=== PATIENT | female | born 1970 | race Caucasian/White ===

== ENCOUNTER 2023-02-16 07:09 | Observation (INO) ==
[2023-02-16 07:25] VITALS: BMI 23.8
[2023-02-16] MEDS ORDERED: ZOFRAN INJ 4 MG VIAL ONE (07:27)
[2023-02-16] MEDS ORDERED: NS 1,000 ML IV 1,000 ML ONE ×2 (07:27→08:51)
--- NOTE | 2023-02-16 07:41 | DR.GENAD ---
HPI <MARTHA CORTEZ - Last Filed: 02/17/23 07:43> Time Seen Time Seen by Provider: 02/16/23 07:40 PCP Primary Care Physician: Dr Ruiz HPI Comment HPI Comment: Patient is a 52-year-old female in the emergency room with nausea, chills, diaphoresis and leg cramps since last night. Patient said her symptoms started at 23:30 PM and have persisted since. She tried to take some Zofran for nausea but the medication did not stay down. Patient said she is weak and she is having chest pain that started this morning that is non radiating in the epigastric and lower mid chest area. Patient have had cholecystectomy in the past but no other surgeries. She denies fever or dysuria or diarrhea. Complaint/Symptoms Chief Complaint Doctors Comments: Epigastric pain, chills, nausea, leg cramps and diaphoresis since last night. Chest pain this morning. Chief Complaint:: Patient states last night around 2330 she became very nauseated, leg cramps, chills and sweating. COVID-19 Coronavirus risk:travel/contact w/high risk person: No Has patient experienced Coronavirus symptoms: No Nurses notes reviewed Nurses Notes Review: Yes Source History Provided: Patient Mode of Arrival Mode of Arrival: Ambulatory Timing Onset of Chief Complaint: 02/15/23 PMH <MARTHA CORTEZ - Last Filed: 02/17/23 07:43> PMH Past Medical History: Yes Past Medical History: GERD Past Surgical History: No Family History History of Family Medical Conditions: No Social History Does patient currently use any type of tobacco product: No Have you used tobacco products in the last 12 months: No Type of Tobacco Use: None Does any household member use tobacco: No Alcohol Use: None Do you use any recreational Drugs:: No Lives With: Spouse Lives Where: Home Travel Risk Coronavirus risk:travel/contact w/high risk person: No Has patient experienced Coronavirus symptoms: No Infectious screening In the last 2 months have you had wt loss of >10#?: NO Have you had fever, night sweats or hemotysis?: No Have you traveled outside the country in the last 6 months?: No Isolation: Standard ROS <MARTHA CORTEZ - Last Filed: 02/17/23 07:43> Review of Systems Constitutional: Chills, Diaphoresis and Weakness; negative Fever Eyes: No Symptoms Reported ENTM: No Symptoms Reported; negative Nose Discharge or Nose Congestion Respiratoy: No Symptoms Reported; negative Moist Cough, Short of Breath or Wheezing Cardiovascular: Chest Pain Gastrointestinal/Abdominal: Abdominal Pain and Nausea; negative Diarrhea or Vomiting Genitourinary: No Symptoms Reported; negative Dysuria Neurological: Weakness; negative Headache or Dizziness Musculoskeletal: No Symptoms Reported; negative Muscle Pain Integumentary: No Symptoms Reported; negative Rash or Juandice Hematologic/Lymphatic: No Symptoms Reported; negative Easy Bruising Endocrine: No Symptoms Reported; negative Increased Thirst or Increased Urine Psychiatric: No Symptoms Reported All Other Systems: Reviewed and Negative PE <ROSALINABELLAVINNY YEIMI - Last Filed: 02/17/23 07:43> Vital Signs Vitals: Vital Signs Temperature 98.2 F Pulse Rate 101 Pulse Rate 97 Pulse Rate 96 Pulse Rate 91 Pulse Rate 95 Pulse Rate 95 Pulse Rate 87 Pulse Rate 91 Pulse Rate 88 Pulse Rate 84 Pulse Rate 91 Pulse Rate 110 Respiratory Rate 30 Respiratory Rate 28 Respiratory Rate 23 Respiratory Rate 22 Respiratory Rate 34 Respiratory Rate 29 Respiratory Rate 32 Respiratory Rate 33 Respiratory Rate 27 Respiratory Rate 24 Respiratory Rate 25 Respiratory Rate 30 Respiratory Rate 16 Blood Pressure 100/65 Blood Pressure 106/64 Blood Pressure 105/65 Blood Pressure 97/58 Blood Pressure 105/65 Blood Pressure 91/67 O2 Sat by Pulse Oximetry 97 O2 Sat by Pulse Oximetry 99 O2 Sat by Pulse Oximetry 98 O2 Sat by Pulse Oximetry 98 O2 Sat by Pulse Oximetry 98 O2 Sat by Pulse Oximetry 99 O2 Sat by Pulse Oximetry 96 O2 Sat by Pulse Oximetry 97 O2 Sat by Pulse Oximetry 100 O2 Sat by Pulse Oximetry 99 O2 Sat by Pulse Oximetry 98 O2 Sat by Pulse Oximetry 95 General Limitations: No Limitations General Appearance: Alert and In No Apparent Distress Head Head Exam: Normal Inspection Eyes Eye exam: Normal Appearance and PERRL; negative Scleral Icterus or Conjunctival Injection ENT ENT Exam: Normal Exam, Normal Oropharynx, Normal External Ear Exam and TM's Normal Bilaterally External Ear Exam: negative Normal External Inspection or Mastoid Tenderness TM/Canal Exam: Bilateral: Normal Nose Exam: Normal Nose Exam Mouth Exam: Normal Inspection Throat Exam: Normal Inspection Neck Neck Exam: Normal Inspection Chest Chest Inspection: Normal Inspection and Symmetric Chest Wall Rise; negative Tenderness Respiratory Respiratory Exam: Normal Lung Sounds Bilat; negative Accessory Muscle Use, Chest Wall Tenderness or Respiratory Distress Respiratory Exam: Bilateral: Clear to Auscultation Cardiovascular Cardiovascular Exam: Regular Rate, Normal Rhythm and Normal Heart Sounds; negative Systolic Murmur or Diastolic Murmur Abdominal Exam Abdominal Exam: Normal Bowel Sounds, Soft and Tenderness Abdominal Tenderness: Epigastrium and Moderate Extremities Extremities Exam: Normal Inspection and Normal Capillary Refill; negative Tenderness Back Back Exam: Normal Inspection; negative (R) CVA Tenderness or (L) CVA Tenderness Neurologic Neurological Exam: Alert and Oriented X3; negative Motor Sensory Deficit Psychiatric Psychiatric Exam: Normal Affect and Normal Mood Skin Skin Exam: Dry <Tc Roper - Last Filed: 02/16/23 10:42> Vital Signs Vitals: Vital Signs Temperature 98.2 F Pulse Rate 101 Pulse Rate 97 Pulse Rate 96 Pulse Rate 91 Pulse Rate 95 Pulse Rate 95 Pulse Rate 87 Pulse Rate 91 Pulse Rate 88 Pulse Rate 84 Pulse Rate 91 Pulse Rate 110 Respiratory Rate 30 Respiratory Rate 28 Respiratory Rate 23 Respiratory Rate 22 Respiratory Rate 34 Respiratory Rate 29 Respiratory Rate 32 Respiratory Rate 33 Respiratory Rate 27 Respiratory Rate 24 Respiratory Rate 25 Respiratory Rate 30 Respiratory Rate 16 Blood Pressure 100/65 Blood Pressure 106/64 Blood Pressure 105/65 Blood Pressure 97/58 Blood Pressure 105/65 Blood Pressure 91/67 O2 Sat by Pulse Oximetry 97 O2 Sat by Pulse Oximetry 99 O2 Sat by Pulse Oximetry 98 O2 Sat by Pulse Oximetry 98 O2 Sat by Pulse Oximetry 98 O2 Sat by Pulse Oximetry 99 O2 Sat by Pulse Oximetry 96 O2 Sat by Pulse Oximetry 97 O2 Sat by Pulse Oximetry 100 O2 Sat by Pulse Oximetry 99 O2 Sat by Pulse Oximetry 98 O2 Sat by Pulse Oximetry 95 MDM <MARTHA CORTEZ - Last Filed: 02/17/23 07:43> Differential Diagnosis Differential Diagnosis: ABD PAIN, CHEST PAIN, VIRAL SYNDROME. COURSE <MARTHA CORTEZ - Last Filed: 02/17/23 07:43> Education/Counseling Education/Counseling: Patient Educated On: Treatment <Tc Roper - Last Filed: 02/16/23 10:42> Treatment Treatment: 52-year-old female seen initially by Dr. Cortez, work-up initiated. Patient given IV fluids, IV meds, signed over to ga. Labs overall acceptable, white count slightly elevated 14,000, with left shift. CT abdomen pelvis consistent with partial small bowel obstruction. Patient notified of findings. Will consult with surgery, Dr. Merino. Will admit to medicine, Dr. Jose M stafford. ROR <MARTHA CORTEZ - Last Filed: 02/17/23 07:43> Labs Reviewed Laboratory Results Reviewed?: Yes 02/17/23 04:40 02/17/23 04:40 Laboratory: WBC 14.1 X10^3/uL (3.6-10.0) H 02/16/23 07:38 RBC 5.50 X10^6/uL (3.5-5.4) H 02/16/23 07:38 Hgb 16.4 g/dL (12.0-16.0) H 02/16/23 07:38 Hct 49.3 % (36.0-47.0) H 02/16/23 07:38 MCV 89.6 fL (80.0-100.0) 02/16/23 07:38 MCH 29.9 pg (27.0-34.0) 02/16/23 07:38 MCHC 33.4 g/dL (33.0-35.0) 02/16/23 07:38 RDW 12.6 % (11.6-16.5) 02/16/23 07:38 Plt Count 372 X10^3/uL (150.0-450.0) 02/16/23 07:38 Plt Count Comment Adequate (ADEQUATE) 02/16/23 07:38 MPV 7.5 fL (7.4-11.0) 02/16/23 07:38 Neut % (Auto) 95.0 % (42.0-75.0) H 02/16/23 07:38 Lymph % (Auto) 1.6 % (21.0-51.0) L 02/16/23 07:38 Travis % (Auto) 2.8 % (0.0-13.0) 02/16/23 07:38 Eos % (Auto) 0.4 % (0.9-2.9) L 02/16/23 07:38 Baso % (Auto) 0.2 % (0.2-1.0) 02/16/23 07:38 Neut # (Auto) 13.4 x10^3/uL (2.2-4.8) H 02/16/23 07:38 Lymph # (Auto) 0.2 X10^3/uL (1.3-2.9) L 02/16/23 07:38 Travis # (Auto) 0.4 x10^3/uL (0.3-0.8) 02/16/23 07:38 Eos # (Auto) 0.1 x10^3/uL (0.0-0.2) 02/16/23 07:38 Baso # (Auto) 0.0 X10^3/uL (0.0-0.1) 02/16/23 07:38 Absolute Nucleated RBC 0.0 /100WBC 02/16/23 07:38 Total Counted 100 02/16/23 07:38 Neutrophils % (Manual) 91 % (39-76) H 02/16/23 07:38 Band Neutrophils % 3 % (0-10) 02/16/23 07:38 Lymphocytes % (Manual) 4 % (13-43) L 02/16/23 07:38 Monocytes % (Manual) 1 % (4-9) L 02/16/23 07:38 Eosinophils % (Manual) 1 % (0-6) 02/16/23 07:38 Plt Morphology Comment Normal (NORMAL) 02/16/23 07:38 RBC Morphology Normal (NORMAL) 02/16/23 07:38 Sodium 139 mmol/L (136-145) 02/16/23 07:38 Corrected Sodium 139 mmol/L (136-145) 02/16/23 07:38 Potassium 3.8 mmol/L (3.5-5.1) 02/16/23 07:38 Chloride 101 mmol/L (98-107) 02/16/23 07:38 Carbon Dioxide 28.3 mmol/L (21-32) 02/16/23 07:38 BUN 22 mg/dL (7-18) H 02/16/23 07:38 Creatinine 0.73 mg/dL (0.55-1.02) 02/16/23 07:38 Est GFR (MDRD) Af Amer > 60 (>60) 02/16/23 07:38 Est GFR (MDRD) Non-Af > 60 (>60) 02/16/23 07:38 Glucose 117 mg/dL (65-99) H 02/16/23 07:38 Calcium 8.4 mg/dL (8.5-10.1) L 02/16/23 07:38 Corrected Calcium TNP 02/16/23 07:38 Magnesium 1.8 mg/dL (2.0-2.9) L 02/16/23 07:38 Total Bilirubin 0.70 mg/dL (0.2-1.0) 02/16/23 07:38 AST 106 Units/L (15-37) H 02/16/23 07:38 ALT 75 Units/L (12-78) 02/16/23 07:38 Alkaline Phosphatase 64 Units/L (46-116) 02/16/23 07:38 Creatine Kinase 48 Units/L (26-192) 02/16/23 07:38 Troponin I High Sens < 4 ng/L (4.0-60.0) L 02/16/23 07:38 Total Protein 7.6 g/dL (6.4-8.2) 02/16/23 07:38 Albumin 3.5 g/dL (3.4-5.0) 02/16/23 07:38 Globulin 4.1 g/dL (2.5-4.5) 02/16/23 07:38 Albumin/Globulin Ratio 0.9 Ratio (1.1-2.1) L 02/16/23 07:38 Amylase 53 Units/L (25-115) 02/16/23 07:38 Lipase 41 Units/L (16-77) 02/16/23 07:38 Specimen Type Clean catch urine 02/16/23 08:25 Urine Color Yellow (YELLOW) 02/16/23 08:25 Urine Appearance Clear (CLEAR) 02/16/23 08:25 Urine pH 6.0 (5.0 - 8.0) 02/16/23 08:25 Ur Specific Bode 1.015 (1.000-1.030) 02/16/23 08:25 Urine Protein 1+ (NEGATIVE) 02/16/23 08:25 Urine Glucose (UA) Negative (NEGATIVE) 02/16/23 08:25 Urine Ketones Negative (NEGATIVE) 02/16/23 08:25 Urine Blood 1+ (NEGATIVE) 02/16/23 08:25 Urine Nitrite Negative (NEGATIVE) 02/16/23 08:25 Urine Bilirubin Negative (NEGATIVE) 02/16/23 08:25 Urine Urobilinogen Normal (NORMAL) 02/16/23 08:25 Ur Leukocyte Esterase 1+ (NEGATIVE) 02/16/23 08:25 Urine RBC 0-2 /HPF (0-3) 02/16/23 08:25 Urine WBC 3-5 /HPF (0-5) 02/16/23 08:25 Ur Squamous Epith Cells Few /HPF (NEGATIVE) 02/16/23 08:25 Amorphous Sediment 1+ /HPF (NEGATIVE) 02/16/23 08:25 Urine Bacteria 1+ /HPF (NEGATIVE) 02/16/23 08:25 Urine Mucus Rare /HPF (NEGATIVE) 02/16/23 08:25 Ur Culture Indicated? Yes/culture set up 02/16/23 08:25 SARS-CoV-2 (PCR) Negative (NEGATIVE) 02/16/23 08:02 Influenza Type A (PCR) Negative (NEGATIVE) 02/16/23 08:02 Influenza Type B (PCR) Negative (NEGATIVE) 02/16/23 08:02 RSV (PCR) Negative (NEGATIVE) 02/16/23 08:02 S. pyogenes (TEM-PCR) Not detected (NOT DETECT) 02/16/23 08:02 XRAY XRAY Interpreted by: Radiologist (Report noted.) <Tc Roper - Last Filed: 02/16/23 10:42> Labs Reviewed Laboratory: WBC 14.1 X10^3/uL (3.6-10.0) H 02/16/23 07:38 RBC 5.50 X10^6/uL (3.5-5.4) H 02/16/23 07:38 Hgb 16.4 g/dL (12.0-16.0) H 02/16/23 07:38 Hct 49.3 % (36.0-47.0) H 02/16/23 07:38 MCV 89.6 fL (80.0-100.0) 02/16/23 07:38 MCH 29.9 pg (27.0-34.0) 02/16/23 07:38 MCHC 33.4 g/dL (33.0-35.0) 02/16/23 07:38 RDW 12.6 % (11.6-16.5) 02/16/23 07:38 Plt Count 372 X10^3/uL (150.0-450.0) 02/16/23 07:38 Plt Count Comment Adequate (ADEQUATE) 02/16/23 07:38 MPV 7.5 fL (7.4-11.0) 02/16/23 07:38 Neut % (Auto) 95.0 % (42.0-75.0) H 02/16/23 07:38 Lymph % (Auto) 1.6 % (21.0-51.0) L 02/16/23 07:38 Travis % (Auto) 2.8 % (0.0-13.0) 02/16/23 07:38 Eos % (Auto) 0.4 % (0.9-2.9) L 02/16/23 07:38 Baso % (Auto) 0.2 % (0.2-1.0) 02/16/23 07:38 Neut # (Auto) 13.4 x10^3/uL (2.2-4.8) H 02/16/23 07:38 Lymph # (Auto) 0.2 X10^3/uL (1.3-2.9) L 02/16/23 07:38 Travis # (Auto) 0.4 x10^3/uL (0.3-0.8) 02/16/23 07:38 Eos # (Auto) 0.1 x10^3/uL (0.0-0.2) 02/16/23 07:38 Baso # (Auto) 0.0 X10^3/uL (0.0-0.1) 02/16/23 07:38 Absolute Nucleated RBC 0.0 /100WBC 02/16/23 07:38 Total Counted 100 02/16/23 07:38 Neutrophils % (Manual) 91 % (39-76) H 02/16/23 07:38 Band Neutrophils % 3 % (0-10) 02/16/23 07:38 Lymphocytes % (Manual) 4 % (13-43) L 02/16/23 07:38 Monocytes % (Manual) 1 % (4-9) L 02/16/23 07:38 Eosinophils % (Manual) 1 % (0-6) 02/16/23 07:38 Plt Morphology Comment Normal (NORMAL) 02/16/23 07:38 RBC Morphology Normal (NORMAL) 02/16/23 07:38 Sodium 139 mmol/L (136-145) 02/16/23 07:38 Corrected Sodium 139 mmol/L (136-145) 02/16/23 07:38 Potassium 3.8 mmol/L (3.5-5.1) 02/16/23 07:38 Chloride 101 mmol/L (98-107) 02/16/23 07:38 Carbon Dioxide 28.3 mmol/L (21-32) 02/16/23 07:38 BUN 22 mg/dL (7-18) H 02/16/23 07:38 Creatinine 0.73 mg/dL (0.55-1.02) 02/16/23 07:38 Est GFR (MDRD) Af Amer > 60 (>60) 02/16/23 07:38 Est GFR (MDRD) Non-Af > 60 (>60) 02/16/23 07:38 Glucose 117 mg/dL (65-99) H 02/16/23 07:38 Calcium 8.4 mg/dL (8.5-10.1) L 02/16/23 07:38 Corrected Calcium TNP 02/16/23 07:38 Magnesium 1.8 mg/dL (2.0-2.9) L 02/16/23 07:38 Total Bilirubin 0.70 mg/dL (0.2-1.0) 02/16/23 07:38 AST 106 Units/L (15-37) H 02/16/23 07:38 ALT 75 Units/L (12-78) 02/16/23 07:38 Alkaline Phosphatase 64 Units/L (46-116) 02/16/23 07:38 Creatine Kinase 48 Units/L (26-192) 02/16/23 07:38 Troponin I High Sens < 4 ng/L (4.0-60.0) L 02/16/23 07:38 Total Protein 7.6 g/dL (6.4-8.2) 02/16/23 07:38 Albumin 3.5 g/dL (3.4-5.0) 02/16/23 07:38 Globulin 4.1 g/dL (2.5-4.5) 02/16/23 07:38 Albumin/Globulin Ratio 0.9 Ratio (1.1-2.1) L 02/16/23 07:38 Amylase 53 Units/L (25-115) 02/16/23 07:38 Lipase 41 Units/L (16-77) 02/16/23 07:38 Specimen Type Clean catch urine 02/16/23 08:25 Urine Color Yellow (YELLOW) 02/16/23 08:25 Urine Appearance Clear (CLEAR) 02/16/23 08:25 Urine pH 6.0 (5.0 - 8.0) 02/16/23 08:25 Ur Specific Bode 1.015 (1.000-1.030) 02/16/23 08:25 Urine Protein 1+ (NEGATIVE) 02/16/23 08:25 Urine Glucose (UA) Negative (NEGATIVE) 02/16/23 08:25 Urine Ketones Negative (NEGATIVE) 02/16/23 08:25 Urine Blood 1+ (NEGATIVE) 02/16/23 08:25 Urine Nitrite Negative (NEGATIVE) 02/16/23 08:25 Urine Bilirubin Negative (NEGATIVE) 02/16/23 08:25 Urine Urobilinogen Normal (NORMAL) 02/16/23 08:25 Ur Leukocyte Esterase 1+ (NEGATIVE) 02/16/23 08:25 Urine RBC 0-2 /HPF (0-3) 02/16/23 08:25 Urine WBC 3-5 /HPF (0-5) 02/16/23 08:25 Ur Squamous Epith Cells Few /HPF (NEGATIVE) 02/16/23 08:25 Amorphous Sediment 1+ /HPF (NEGATIVE) 02/16/23 08:25 Urine Bacteria 1+ /HPF (NEGATIVE) 02/16/23 08:25 Urine Mucus Rare /HPF (NEGATIVE) 02/16/23 08:25 Ur Culture Indicated? Yes/culture set up 02/16/23 08:25 SARS-CoV-2 (PCR) Negative (NEGATIVE) 02/16/23 08:02 Influenza Type A (PCR) Negative (NEGATIVE) 02/16/23 08:02 Influenza Type B (PCR) Negative (NEGATIVE) 02/16/23 08:02 RSV (PCR) Negative (NEGATIVE) 02/16/23 08:02 S. pyogenes (TEM-PCR) Not detected (NOT DETECT) 02/16/23 08:02 Opioid <MARTHA CORTEZ - Last Filed: 02/17/23 07:43> Opioid Risk Tool Age (Puneet box if 16-45): No History of Preadolescent Sexual Abuse: No Total: 0 Total Score Risk Category: Low Risk Copyright: Balbir BALES predicting aberrant behaviors <Tc Roper - Vasu Filed: 02/16/23 10:42> Opioid Risk Tool Total: 0 Total Score Risk Category: Low Risk Discharge Plan Diagnosis Discharge Problem: Partial small bowel obstruction Discharge Plan Patient Disposition: 09 ADMITTED INPATIENT Condition: Stable
[2023-02-16] MEDS ORDERED: ZOFRAN INJ 4 MG VIAL IVP ONE (07:44)
[2023-02-16] MEDS ORDERED: NS 1,000 ML IV 1,000 ML IV ONE ×3 (07:44→08:51)
[2023-02-16] MEDS ORDERED: DEMEROL INJ IVP ONE (07:53)
[2023-02-16] MEDS ORDERED: DEMEROL INJ ONE (07:55)
[2023-02-16 08:04] LABS: BASOPHILS % (AUTO) 0.2 % (0.2-1.0); EOSINOPHILS # (AUTO) 0.1 x10^3/uL (0.0-0.2); EOSINOPHILS % (AUTO) 0.4 % (0.9-2.9); HEMATOCRIT 49.3 % (36.0-47.0); HEMOGLOBIN 16.4 g/dL (12.0-16.0); LYMPHOCYTES # (AUTO) 0.2 X10^3/uL (1.3-2.9); LYMPHOCYTES % (AUTO) 1.6 % (21.0-51.0); MEAN CORPUSCULAR HEMOGLOBIN 29.9 pg (27.0-34.0); MEAN CORPUSCULAR HGB CONC 33.4 g/dL (33.0-35.0); MEAN CORPUSCULAR VOLUME 89.6 fL (80.0-100.0); MEAN PLATELET VOLUME 7.5 fL (7.4-11.0); MONOCYTES # (AUTO) 0.4 x10^3/uL (0.3-0.8); MONOCYTES % (AUTO) 2.8 % (0.0-13.0); NEUTROPHILS # (AUTO) 13.4 x10^3/uL (2.2-4.8); PLATELET COUNT 372 X10^3/uL (150.0-450.0); RED CELL DISTRIBUTION WIDTH 12.6 % (11.6-16.5); WHITE BLOOD COUNT 14.1 X10^3/uL (3.6-10.0)
--- NOTE | 2023-02-16 08:10 | EKG ---
Test Reason : CHEST PAIN Blood Pressure : */* mmHG Vent. Rate : 85 BPM Atrial Rate : 85 BPM P-R Int : 122 ms QRS Dur : 94 ms QT Int : 366 ms P-R-T Axes : 35 36 58 degrees QTc Int : 435 ms Normal sinus rhythm Incomplete right bundle branch block Borderline ECG No previous ECGs available Confirmed by Cm Soliz MD ([id number]) on 02/17/2023 8:15:19 AM Referred By: Confirmed By: Cm Soliz MD
[2023-02-16 08:20] LABS: ALANINE AMINOTRANSFERASE 75 Units/L (12-78); ALBUMIN 3.5 g/dL (3.4-5.0); ALKALINE PHOSPHATASE 64 Units/L (46-116); AMYLASE 53 Units/L (25-115); ASPARTATE AMINO TRANSFERASE 106 Units/L (15-37); BLOOD UREA NITROGEN 22 mg/dL (7-18); CALCIUM 8.4 mg/dL (8.5-10.1); CARBON DIOXIDE 28.3 mmol/L (21-32); CHLORIDE 101 mmol/L (98-107); COR NA(FOR HYPERGLY) 139 mmol/L (136-145); CREATININE 0.73 mg/dL (0.55-1.02); GLUCOSE 117 mg/dL (65-99); LIPASE 41 Units/L (16-77); POTASSIUM 3.8 mmol/L (3.5-5.1); SODIUM 139 mmol/L (136-145); TOTAL PROTEIN 7.6 g/dL (6.4-8.2); eGFR NON BLACK RACES > 60 (>60)
[2023-02-16 08:23] LABS: CREATINE KINASE 48 Units/L (26-192)
[2023-02-16 08:25] LABS: BAND NEUTROPHILS % 3 % (0-10); PLATELET MORPHOLOGY COMMENT NORMAL (NORMAL)
[2023-02-16 08:34] LABS: STREP A BY PCR NOT DETECTED (NOT DETECT)
[2023-02-16 08:38] LABS: BILIRUBIN,URINE NEGATIVE (NEGATIVE); BLOOD/HEMOGLOBIN,URINE 1+ (NEGATIVE); GLUCOSE, URINE NEGATIVE (NEGATIVE); KETONES,URINE NEGATIVE (NEGATIVE); LEUKOCYTE ESTERASE ,URINE 1+ (NEGATIVE); NITRITES,URINE NEGATIVE (NEGATIVE); PROTEIN,URINE 1+ (NEGATIVE); UROBILINOGEN,URINE NORMAL (NORMAL)
[2023-02-16 08:40] LABS: APPEARANCE,URINE CLEAR (CLEAR); COLOR,URINE YELLOW (YELLOW)
[2023-02-16 08:44] LABS: RBC,URINE 0-2 /HPF (0-3)
[2023-02-16 08:45] LABS: BACTERIA,URINE 1+ /HPF (NEGATIVE); SQUAMOUS EPITHELIAL CELL,UR FEW /HPF (NEGATIVE)
--- NOTE | 2023-02-16 08:47 | CT ---
EXAM:ABDOMEN/PELVIS W/O CONHISTORY:Abdominal painTECHNIQUE:Axial noncontrast images with coronal and sagittal reformats. Dose reduction procedures were used with mA/kv adjusted for body size. This examination is limited due to the lack of intravenous and oral contrast. The examination was performed in this manner at the sole discretion of the ordering caregiver.COMPARISON:NoneFINDINGS:Lung bases are clear. The liver, spleen, adrenal glands, and pancreas appear within normal limits but only to the limitations of an unenhanced examination. Patient is status post cholecystectomy. Kidneys are unobstructed and without stones. No ureteral calculi are identified. Abdominal aorta is normal in caliber. No intraperitoneal or retroperitoneal lymphadenopathy of significance is identified. The appendix is normal. The stomach is distended with air and fluid which could be related to recent ingestion, gastric outlet obstruction or gastroparesis. However there is also fluid distention of the duodenal jejunal and proximal to mid ileum. There is a transition point in the right lower quadrant ileum distal to which the small bowel is more normal in caliber. Findings are suggestive of a partial small bowel obstruction. Etiology is unclear. Findings could be on the basis adhesion, internal herniation or volvulus. There does appear to be some mesenteric vascular swirling in the right mid abdomen best visualized on the sagittal images. This can be seen in both volvulus and internal herniation. There are no findings suggestive of colitis or diverticulitis. No pelvic masses, pelvic fluid, or pelvic lymphadenopathy is identified. No lytic or blastic skeletal lesions of significance are identified.IMPRESSION:Findings suggestive of a partial small bowel obstruction with the transition in the distal ileum in the right mid abdomen/right lower quadrant. Etiology of the obstruction is unclear. Some differential diagnostic possibilities given above.THIS IS AN ELECTRONICALLY VERIFIED FINAL [id number]/2023 8:44 AM - Electronically signed by Zach Kilpatrick MD
[2023-02-16] MEDS ORDERED: OFIRMEV IV 1000 MG VIAL 1,000 MG/100 ML VIAL IV ONE ×2 (10:54→11:03)
[2023-02-16] MEDS ORDERED: ZOFRAN INJ 4 MG VIAL IVP PRN ×2 (10:55→16:00)
[2023-02-16] MEDS ORDERED: CONSULT PHARMACY - POTASSIUM & MAGNESIUM XX SCH (11:00)
[2023-02-16] MEDS ORDERED: D5 1/2 NS 1,000 ML 1,000 ML IV ONE (11:03)
[2023-02-16] MEDS: D5 1/2 NS 1,000 ML 1,000 ML IV SCH ×2 (11:09→21:40)
[2023-02-16] MEDS: K-RIDER 10 MEQ/NS 100 ML 10 MEQ/100 ML BAG IV SCH ×2 (15:44→18:30)
[2023-02-16] MEDS ORDERED: TYLENOL 325 MG TAB PO PRN (18:36)
[2023-02-17] MEDS ORDERED: MORPHINE SULFATE INJ 2 MG INJ IVP PRN (01:28)
[2023-02-17 04:28] VITALS: RESP 18
[2023-02-17] MEDS: D5 1/2 NS 1,000 ML 1,000 ML IV SCH ×3 (04:35→22:04)
[2023-02-17 05:34] LABS: BASOPHILS % (AUTO) 0.3 % (0.2-1.0); EOSINOPHILS % (AUTO) 0.5 % (0.9-2.9); HEMATOCRIT 38.8 % (36.0-47.0); LYMPHOCYTES # (AUTO) 0.8 X10^3/uL (1.3-2.9); LYMPHOCYTES % (AUTO) 14.7 % (21.0-51.0); MEAN CORPUSCULAR HGB CONC 33.7 g/dL (33.0-35.0); MEAN PLATELET VOLUME 7.4 fL (7.4-11.0); MONOCYTES # (AUTO) 0.5 x10^3/uL (0.3-0.8); MONOCYTES % (AUTO) 8.3 % (0.0-13.0); NEUTROPHILS # (AUTO) 4.2 x10^3/uL (2.2-4.8); NEUTROPHILS % (AUTO) 76.2 % (42.0-75.0); PLATELET COUNT 284 X10^3/uL (150.0-450.0); RED BLOOD COUNT 4.36 X10^6/uL (3.5-5.4); WHITE BLOOD COUNT 5.6 X10^3/uL (3.6-10.0)
[2023-02-17 05:39] LABS: HEMOGLOBIN 13.1 g/dL (12.0-16.0)
[2023-02-17 05:42] LABS: ALANINE AMINOTRANSFERASE 392 Units/L (12-78); ALBUMIN 2.2 g/dL (3.4-5.0); ALKALINE PHOSPHATASE 111 Units/L (46-116); ASPARTATE AMINO TRANSFERASE 196 Units/L (15-37); BLOOD UREA NITROGEN 7 mg/dL (7-18); CALCIUM 7.1 mg/dL (8.5-10.1); CARBON DIOXIDE 24.1 mmol/L (21-32); CHLORIDE 107 mmol/L (98-107); COR CA(FOR HYPOALB) 8.5 mg/dL (8.5-10.1); GLUCOSE 104 mg/dL (65-99); MAGNESIUM 1.7 mg/dL (2.0-2.9); POTASSIUM 3.5 mmol/L (3.5-5.1); SODIUM 137 mmol/L (136-145); TOTAL PROTEIN 5.4 g/dL (6.4-8.2); eGFR NON BLACK RACES > 60 (>60)
[2023-02-17] MEDS ORDERED: CONSULT PHARMACY - POTASSIUM & MAGNESIUM XX SCH (07:00)
[2023-02-17] MEDS ORDERED: TORADOL 30 MG VIAL IVP PRN (08:26)
--- NOTE | 2023-02-17 08:52 | DR.H&P ---
H&P History & Physical for Day of: H&P Date: 02/16/23 Chief Complaint Chief Complaint: Epigastric pain with chills, nausea, leg cramps and diaphoresis. Onset of chest pain this morning. Allergies Allergies Allergy/AdvReac Type Severity Reaction Status Date / Time codeine AdvReac Verified 02/16/23 07:46 povidone-iodine AdvReac Verified 02/16/23 07:46 [From Betadine] History of Present Illness History of Present Illness: This is a 52-year-old white female who presented to [facility] emergency department with complaints of nausea, chills, diaphoresis, leg cramps and chest pain last night. Patient reports her symptoms started about 2330 and have persisted ever since. She did take some Zofran that she had a prescription for and she was not able to keep it down and she vomited out shortly afterwards. She reports that she is weak and having chest pain that started in the morning that is nonradiating. She is having epigastric pain and lower mid chest pain. She is status postcholecystectomy in the past and has had no other surgeries. Currently denies any fever, dysuria and diarrhea. Currently denies any fever, dysuria and diarrhea. Past Medical History Past Medical History: GERD Past Surgical History Surgical History: Cholecystectomy Social History Does patient currently use any type of tobacco product: No Have you used tobacco products in the last 12 months: No Type of Tobacco Use: None Does any household member use tobacco: No Alcohol Use: None Drug Use: None Medications Home Medications: Home Medications Medication Instructions Recorded Confirmed Type alprazolam 0.5 mg tablet 0.5 mg PO BID PRN 02/16/23 02/16/23 History flavoxate 100 mg tablet 100 mg PO Q8H PRN bladder muscle 02/16/23 02/16/23 History dysfunction pantoprazole 40 mg tablet,delayed 40 mg PO QDAY 02/16/23 02/16/23 History release tirzepatide 2.5 mg/0.5 mL 2.5 mg subcut WEEKLY 02/16/23 02/16/23 History subcutaneous pen injector (Venecia) Labs 02/17/23 04:40 02/17/23 04:40 Labs: Laboratory WBC 5.6 X10^3/uL (3.6-10.0) D 02/17/23 04:40 RBC 4.36 X10^6/uL (3.5-5.4) 02/17/23 04:40 Hgb 13.1 g/dL (12.0-16.0) D 02/17/23 04:40 Hct 38.8 % (36.0-47.0) 02/17/23 04:40 MCV 89.0 fL (80.0-100.0) 02/17/23 04:40 MCH 30.0 pg (27.0-34.0) 02/17/23 04:40 MCHC 33.7 g/dL (33.0-35.0) 02/17/23 04:40 RDW 13.0 % (11.6-16.5) 02/17/23 04:40 Plt Count 284 X10^3/uL (150.0-450.0) 02/17/23 04:40 Plt Count Comment Adequate (ADEQUATE) 02/16/23 07:38 MPV 7.4 fL (7.4-11.0) 02/17/23 04:40 Neut % (Auto) 76.2 % (42.0-75.0) H 02/17/23 04:40 Lymph % (Auto) 14.7 % (21.0-51.0) L 02/17/23 04:40 [place] % (Auto) 8.3 % (0.0-13.0) 02/17/23 04:40 Eos % (Auto) 0.5 % (0.9-2.9) L 02/17/23 04:40 Baso % (Auto) 0.3 % (0.2-1.0) 02/17/23 04:40 Neut # (Auto) 4.2 x10^3/uL (2.2-4.8) 02/17/23 04:40 Lymph # (Auto) 0.8 X10^3/uL (1.3-2.9) L 02/17/23 04:40 [place] # (Auto) 0.5 x10^3/uL (0.3-0.8) 02/17/23 04:40 Eos # (Auto) 0.0 x10^3/uL (0.0-0.2) 02/17/23 04:40 Baso # (Auto) 0.0 X10^3/uL (0.0-0.1) 02/17/23 04:40 Absolute Nucleated RBC 0.2 /100WBC 02/17/23 04:40 Total Counted 100 02/16/23 07:38 Neutrophils % (Manual) 91 % (39-76) H 02/16/23 07:38 Band Neutrophils % 3 % (0-10) 02/16/23 07:38 Lymphocytes % (Manual) 4 % (13-43) L 02/16/23 07:38 Monocytes % (Manual) 1 % (4-9) L 02/16/23 07:38 Eosinophils % (Manual) 1 % (0-6) 02/16/23 07:38 Plt Morphology Comment Normal (NORMAL) 02/16/23 07:38 RBC Morphology Normal (NORMAL) 02/16/23 07:38 Sodium 137 mmol/L (136-145) 02/17/23 04:40 Corrected Sodium TNP 02/17/23 04:40 Potassium 3.5 mmol/L (3.5-5.1) 02/17/23 04:40 Chloride 107 mmol/L (98-107) 02/17/23 04:40 Carbon Dioxide 24.1 mmol/L (21-32) 02/17/23 04:40 BUN 7 mg/dL (7-18) 02/17/23 04:40 Creatinine 0.60 mg/dL (0.55-1.02) 02/17/23 04:40 Est GFR (MDRD) Af Amer > 60 (>60) 02/17/23 04:40 Est GFR (MDRD) Non-Af > 60 (>60) 02/17/23 04:40 Glucose 104 mg/dL (65-99) H 02/17/23 04:40 Calcium 7.1 mg/dL (8.5-10.1) L 02/17/23 04:40 Corrected Calcium 8.5 mg/dL (8.5-10.1) 02/17/23 04:40 Magnesium 1.7 mg/dL (2.0-2.9) L 02/17/23 04:40 Total Bilirubin 0.50 mg/dL (0.2-1.0) 02/17/23 04:40 AST 196 Units/L (15-37) H 02/17/23 04:40 ALT 392 Units/L (12-78) H 02/17/23 04:40 Alkaline Phosphatase 111 Units/L (46-116) 02/17/23 04:40 Creatine Kinase 48 Units/L (26-192) 02/16/23 07:38 Troponin I High Sens < 4 ng/L (4.0-60.0) L 02/16/23 07:38 Total Protein 5.4 g/dL (6.4-8.2) L 02/17/23 04:40 Albumin 2.2 g/dL (3.4-5.0) L 02/17/23 04:40 Globulin 3.2 g/dL (2.5-4.5) 02/17/23 04:40 Albumin/Globulin Ratio 0.7 Ratio (1.1-2.1) L 02/17/23 04:40 Amylase 53 Units/L (25-115) 02/16/23 07:38 Lipase 41 Units/L (16-77) 02/16/23 07:38 Specimen Type Clean catch urine 02/16/23 08:25 Urine Color Yellow (YELLOW) 02/16/23 08:25 Urine Appearance Clear (CLEAR) 02/16/23 08:25 Urine pH 6.0 (5.0 - 8.0) 02/16/23 08:25 Ur Specific [place] 1.015 (1.000-1.030) 02/16/23 08:25 Urine Protein 1+ (NEGATIVE) 02/16/23 08:25 Urine Glucose (UA) Negative (NEGATIVE) 02/16/23 08:25 Urine Ketones Negative (NEGATIVE) 02/16/23 08:25 Urine Blood 1+ (NEGATIVE) 02/16/23 08:25 Urine Nitrite Negative (NEGATIVE) 02/16/23 08:25 Urine Bilirubin Negative (NEGATIVE) 02/16/23 08:25 Urine Urobilinogen Normal (NORMAL) 02/16/23 08:25 Ur Leukocyte Esterase 1+ (NEGATIVE) 02/16/23 08:25 Urine RBC 0-2 /HPF (0-3) 02/16/23 08:25 Urine WBC 3-5 /HPF (0-5) 02/16/23 08:25 Ur Squamous Epith Cells Few /HPF (NEGATIVE) 02/16/23 08:25 Amorphous Sediment 1+ /HPF (NEGATIVE) 02/16/23 08:25 Urine Bacteria 1+ /HPF (NEGATIVE) 02/16/23 08:25 Urine Mucus Rare /HPF (NEGATIVE) 02/16/23 08:25 Ur Culture Indicated? Yes/culture set up 02/16/23 08:25 SARS-CoV-2 (PCR) Negative (NEGATIVE) 02/16/23 08:02 Influenza Type A (PCR) Negative (NEGATIVE) 02/16/23 08:02 Influenza Type B (PCR) Negative (NEGATIVE) 02/16/23 08:02 RSV (PCR) Negative (NEGATIVE) 02/16/23 08:02 S. pyogenes (TEM-PCR) Not detected (NOT DETECT) 02/16/23 08:02 Review of Systems Constitutional: Weakness and Malaise; denies Fever Eyes: No Symptoms Reported ENT: No Symptoms Reported Respiratory: No Symptoms Reported Cardiovascular: Chest Pain and Light Headedness Gastrointestinal: Nausea and Vomiting; denies Diarrhea, Constipation or Hematochezia Genitourinary: No Symptoms Reported Musculoskeletal: No Symptoms Reported Skin: No Symptoms Reported Neurological: No Symptoms Reported Physical Exam Vital Signs: Vital Signs Temperature 98.4 F Pulse Rate [Left Brachial] 73 Respiratory Rate 18 Respiratory Rate 20 Respiratory Rate 22 Blood Pressure [Left Arm] 104/55 Blood Pressure [Left Arm] 116/80 O2 Sat by Pulse Oximetry 95 Oriented: Normal, Time, Person and Place Eyes: Normal Ear: Normal Nose: Normal Throat: Normal Respiratory: Clear Throughout Cardiovascular: Normal : Normal Auscultation: Bowel Sounds: Normal Palpation: Normal Tenderness: Diffuse Skin: Normal Musculoskeletal: Normal Psychiatric: Normal Mood Description: Calm Affect: Normal Speech Pattern: Clear Assessment/Plan (1) Partial small bowel obstruction: Narrative Support Text: CT scan of the abdomen showing partial small bowel obstruction. We made a pa terent n.p.o. now and if needed will place NG tube Status: Acute Plan: Patient was admitted and started on IV fluid. Were consulted general surgery see what their recommendations are. We will also order daily KUBs. We will leave it up to surgery if they want to place a NG tube or not. Review H&P Reviewed: Yes Patient was examined?: Yes
[2023-02-17] MEDS ORDERED: K-DUR TAB 20 MEQ PO SCH (09:00)
--- NOTE | 2023-02-17 11:02 | RAD ---
EXAM:KUBHISTORY:PARTIAL SBO;COMPARISON:NoneFINDINGS:Evaluation of the abdomen demonstrates a nonobstructive bowel gas pattern. Moderate colonic fecal burden. No evidence of pneumoperitoneum. No pathologic soft tissue calcification. No acute osseous abnormality.IMPRESSION:No acute abdominal process.THIS IS AN ELECTRONICALLY VERIFIED FINAL [id number]/17/2023 10:59 AM - Electronically signed by Zach Kilpatrikc MD
[2023-02-17] MEDS: MAG-OX TAB PO SCH (11:57)
--- NOTE | 2023-02-17 12:45 | PCM.PROG ---
Progress Note Progress Note for Day of Date of Exam: 02/17/23 Subjective Subjective: The patient is resting comfortably this morning. She tells me she feels better today compared to yesterday. She is still n.p.o. at this time and we do not have the KU by phone this morning. Spoke with general surgeon Dr. Sims and he will be seeing her later today. I will follow-up with his consultation and recommendations. Past Medical Family Social History Allergies: Allergies codeine Adverse Reaction (Verified 02/16/23 07:46) povidone-iodine [From Betadine] Adverse Reaction (Verified 02/16/23 07:46) Review of Systems ROS: No change since H&P Vital Signs and I&O's Vital Signs: Vital Signs Respiratory Rate 18 Respiratory Rate 18 Intake and Output: Intake & Output 02/15/23 02/16/23 02/17/23 02/18/23 11:59 11:59 11:59 11:59 Intake Total 1818 / 1818 Balance 1818 / 1818 Physical Exam Oriented: Normal, Time, Person and Place Eyes: Normal Ear: Normal Nose: Normal Throat: Normal Respiratory: Normal Cardiovascular: Normal : Normal Auscultation: Bowel Sounds: Normal Tenderness: Diffuse Skin: Normal Musculoskeletal: Normal Psychiatric: Normal Mood Description: Calm Affect: Normal Speech Pattern: Clear Laboratory and Diagnostics 02/17/23 04:40 02/17/23 04:40 Labs: 02/16/23 08:25 Urine,Clean Catch Urine Culture - Preliminary Laboratory WBC 5.6 X10^3/uL (3.6-10.0) D 02/17/23 04:40 RBC 4.36 X10^6/uL (3.5-5.4) 02/17/23 04:40 Hgb 13.1 g/dL (12.0-16.0) D 02/17/23 04:40 Hct 38.8 % (36.0-47.0) 02/17/23 04:40 MCV 89.0 fL (80.0-100.0) 02/17/23 04:40 MCH 30.0 pg (27.0-34.0) 02/17/23 04:40 MCHC 33.7 g/dL (33.0-35.0) 02/17/23 04:40 RDW 13.0 % (11.6-16.5) 02/17/23 04:40 Plt Count 284 X10^3/uL (150.0-450.0) 02/17/23 04:40 Plt Count Comment Adequate (ADEQUATE) 02/16/23 07:38 MPV 7.4 fL (7.4-11.0) 02/17/23 04:40 Neut % (Auto) 76.2 % (42.0-75.0) H 02/17/23 04:40 Lymph % (Auto) 14.7 % (21.0-51.0) L 02/17/23 04:40 [place] % (Auto) 8.3 % (0.0-13.0) 02/17/23 04:40 Eos % (Auto) 0.5 % (0.9-2.9) L 02/17/23 04:40 Baso % (Auto) 0.3 % (0.2-1.0) 02/17/23 04:40 Neut # (Auto) 4.2 x10^3/uL (2.2-4.8) 02/17/23 04:40 Lymph # (Auto) 0.8 X10^3/uL (1.3-2.9) L 02/17/23 04:40 [place] # (Auto) 0.5 x10^3/uL (0.3-0.8) 02/17/23 04:40 Eos # (Auto) 0.0 x10^3/uL (0.0-0.2) 02/17/23 04:40 Baso # (Auto) 0.0 X10^3/uL (0.0-0.1) 02/17/23 04:40 Absolute Nucleated RBC 0.2 /100WBC 02/17/23 04:40 Total Counted 100 02/16/23 07:38 Neutrophils % (Manual) 91 % (39-76) H 02/16/23 07:38 Band Neutrophils % 3 % (0-10) 02/16/23 07:38 Lymphocytes % (Manual) 4 % (13-43) L 02/16/23 07:38 Monocytes % (Manual) 1 % (4-9) L 02/16/23 07:38 Eosinophils % (Manual) 1 % (0-6) 02/16/23 07:38 Plt Morphology Comment Normal (NORMAL) 02/16/23 07:38 RBC Morphology Normal (NORMAL) 02/16/23 07:38 Sodium 137 mmol/L (136-145) 02/17/23 04:40 Corrected Sodium TNP 02/17/23 04:40 Potassium 3.5 mmol/L (3.5-5.1) 02/17/23 04:40 Chloride 107 mmol/L (98-107) 02/17/23 04:40 Carbon Dioxide 24.1 mmol/L (21-32) 02/17/23 04:40 BUN 7 mg/dL (7-18) 02/17/23 04:40 Creatinine 0.60 mg/dL (0.55-1.02) 02/17/23 04:40 Est GFR (MDRD) Af Amer > 60 (>60) 02/17/23 04:40 Est GFR (MDRD) Non-Af > 60 (>60) 02/17/23 04:40 Glucose 104 mg/dL (65-99) H 02/17/23 04:40 Calcium 7.1 mg/dL (8.5-10.1) L 02/17/23 04:40 Corrected Calcium 8.5 mg/dL (8.5-10.1) 02/17/23 04:40 Magnesium 1.7 mg/dL (2.0-2.9) L 02/17/23 04:40 Total Bilirubin 0.50 mg/dL (0.2-1.0) 02/17/23 04:40 AST 196 Units/L (15-37) H 02/17/23 04:40 ALT 392 Units/L (12-78) H 02/17/23 04:40 Alkaline Phosphatase 111 Units/L (46-116) 02/17/23 04:40 Creatine Kinase 48 Units/L (26-192) 02/16/23 07:38 Troponin I High Sens < 4 ng/L (4.0-60.0) L 02/16/23 07:38 Total Protein 5.4 g/dL (6.4-8.2) L 02/17/23 04:40 Albumin 2.2 g/dL (3.4-5.0) L 02/17/23 04:40 Globulin 3.2 g/dL (2.5-4.5) 02/17/23 04:40 Albumin/Globulin Ratio 0.7 Ratio (1.1-2.1) L 02/17/23 04:40 Amylase 53 Units/L (25-115) 02/16/23 07:38 Lipase 41 Units/L (16-77) 02/16/23 07:38 Specimen Type Clean catch urine 02/16/23 08:25 Urine Color Yellow (YELLOW) 02/16/23 08:25 Urine Appearance Clear (CLEAR) 02/16/23 08:25 Urine pH 6.0 (5.0 - 8.0) 02/16/23 08:25 Ur Specific [place] 1.015 (1.000-1.030) 02/16/23 08:25 Urine Protein 1+ (NEGATIVE) 02/16/23 08:25 Urine Glucose (UA) Negative (NEGATIVE) 02/16/23 08:25 Urine Ketones Negative (NEGATIVE) 02/16/23 08:25 Urine Blood 1+ (NEGATIVE) 02/16/23 08:25 Urine Nitrite Negative (NEGATIVE) 02/16/23 08:25 Urine Bilirubin Negative (NEGATIVE) 02/16/23 08:25 Urine Urobilinogen Normal (NORMAL) 02/16/23 08:25 Ur Leukocyte Esterase 1+ (NEGATIVE) 02/16/23 08:25 Urine RBC 0-2 /HPF (0-3) 02/16/23 08:25 Urine WBC 3-5 /HPF (0-5) 02/16/23 08:25 Ur Squamous Epith Cells Few /HPF (NEGATIVE) 02/16/23 08:25 Amorphous Sediment 1+ /HPF (NEGATIVE) 02/16/23 08:25 Urine Bacteria 1+ /HPF (NEGATIVE) 02/16/23 08:25 Urine Mucus Rare /HPF (NEGATIVE) 02/16/23 08:25 Ur Culture Indicated? Yes/culture set up 02/16/23 08:25 SARS-CoV-2 (PCR) Negative (NEGATIVE) 02/16/23 08:02 Influenza Type A (PCR) Negative (NEGATIVE) 02/16/23 08:02 Influenza Type B (PCR) Negative (NEGATIVE) 02/16/23 08:02 RSV (PCR) Negative (NEGATIVE) 02/16/23 08:02 S. pyogenes (TEM-PCR) Not detected (NOT DETECT) 02/16/23 08:02 Radiology Reviewed: Yes Plan (1) Partial small bowel obstruction: Status: Acute Plan: The patient was admitted and started on IV fluid. We consulted general surgery to see what their recommendations are. We will also order daily KUBs. We will leave it up to surgery if they want to place a NG tube or not. Check KUB this morning to follow-up with results.
--- NOTE | 2023-02-17 14:19 | DR.PROGNOT ---
HOSPITAL PROGRESS NOTE Progress Note for Day of: Progress Note Date: 02/17/23 Chief Complaint Chief Complaint: Abdominal pain has mostly subsided, no nausea or vomiting. Patient is having frequent loose bowel movement today. Repeated KUB showed no evidence of obstruction. Lab work is normal and patient is afebrile. Past Medical Family Social History Allergies: Allergies codeine Adverse Reaction (Verified 02/16/23 07:46) povidone-iodine [From Betadine] Adverse Reaction (Verified 02/16/23 07:46) Review Of Systems ROS: No change since H&P Vital Signs Vital Signs: Vital Signs Temperature 97.6 F Temperature 98.7 F Pulse Rate [Left Brachial] 68 Pulse Rate [Left Brachial] 76 Respiratory Rate 18 Respiratory Rate 18 Respiratory Rate 18 Respiratory Rate 18 Blood Pressure [Left Arm] 102/61 Blood Pressure [Left Arm] 99/58 O2 Sat by Pulse Oximetry 97 O2 Sat by Pulse Oximetry 97 Physical Exam Oriented: Normal, Time, Person and Place Eyes: Normal Ear: Normal Nose: Normal Throat: Normal Respiratory: Normal Cardiovascular: Normal : Normal GI:Auscultation: Normal GI:Palpation: Normal GI: Tenderness: Diffuse and Other (Soft flat abdomen with mild diffuse right- sided tenderness, no rebound or rigidity, bowel sounds present) Skin: Normal Musculoskeletal: Normal Psychiatric: Normal Mood Description: Calm Affect: Normal Speech Pattern: Clear Laboratory and Diagnostics 02/17/23 04:40 02/17/23 04:40 Labs: 02/16/23 08:25 Urine,Clean Catch Urine Culture - Preliminary Laboratory WBC 5.6 X10^3/uL (3.6-10.0) D 02/17/23 04:40 RBC 4.36 X10^6/uL (3.5-5.4) 02/17/23 04:40 Hgb 13.1 g/dL (12.0-16.0) D 02/17/23 04:40 Hct 38.8 % (36.0-47.0) 02/17/23 04:40 MCV 89.0 fL (80.0-100.0) 02/17/23 04:40 MCH 30.0 pg (27.0-34.0) 02/17/23 04:40 MCHC 33.7 g/dL (33.0-35.0) 02/17/23 04:40 RDW 13.0 % (11.6-16.5) 02/17/23 04:40 Plt Count 284 X10^3/uL (150.0-450.0) 02/17/23 04:40 Plt Count Comment Adequate (ADEQUATE) 02/16/23 07:38 MPV 7.4 fL (7.4-11.0) 02/17/23 04:40 Neut % (Auto) 76.2 % (42.0-75.0) H 02/17/23 04:40 Lymph % (Auto) 14.7 % (21.0-51.0) L 02/17/23 04:40 [place] % (Auto) 8.3 % (0.0-13.0) 02/17/23 04:40 Eos % (Auto) 0.5 % (0.9-2.9) L 02/17/23 04:40 Baso % (Auto) 0.3 % (0.2-1.0) 02/17/23 04:40 Neut # (Auto) 4.2 x10^3/uL (2.2-4.8) 02/17/23 04:40 Lymph # (Auto) 0.8 X10^3/uL (1.3-2.9) L 02/17/23 04:40 [place] # (Auto) 0.5 x10^3/uL (0.3-0.8) 02/17/23 04:40 Eos # (Auto) 0.0 x10^3/uL (0.0-0.2) 02/17/23 04:40 Baso # (Auto) 0.0 X10^3/uL (0.0-0.1) 02/17/23 04:40 Absolute Nucleated RBC 0.2 /100WBC 02/17/23 04:40 Total Counted 100 02/16/23 07:38 Neutrophils % (Manual) 91 % (39-76) H 02/16/23 07:38 Band Neutrophils % 3 % (0-10) 02/16/23 07:38 Lymphocytes % (Manual) 4 % (13-43) L 02/16/23 07:38 Monocytes % (Manual) 1 % (4-9) L 02/16/23 07:38 Eosinophils % (Manual) 1 % (0-6) 02/16/23 07:38 Plt Morphology Comment Normal (NORMAL) 02/16/23 07:38 RBC Morphology Normal (NORMAL) 02/16/23 07:38 Sodium 137 mmol/L (136-145) 02/17/23 04:40 Corrected Sodium TNP 02/17/23 04:40 Potassium 3.5 mmol/L (3.5-5.1) 02/17/23 04:40 Chloride 107 mmol/L (98-107) 02/17/23 04:40 Carbon Dioxide 24.1 mmol/L (21-32) 02/17/23 04:40 BUN 7 mg/dL (7-18) 02/17/23 04:40 Creatinine 0.60 mg/dL (0.55-1.02) 02/17/23 04:40 Est GFR (MDRD) Af Amer > 60 (>60) 02/17/23 04:40 Est GFR (MDRD) Non-Af > 60 (>60) 02/17/23 04:40 Glucose 104 mg/dL (65-99) H 02/17/23 04:40 Calcium 7.1 mg/dL (8.5-10.1) L 02/17/23 04:40 Corrected Calcium 8.5 mg/dL (8.5-10.1) 02/17/23 04:40 Magnesium 1.7 mg/dL (2.0-2.9) L 02/17/23 04:40 Total Bilirubin 0.50 mg/dL (0.2-1.0) 02/17/23 04:40 AST 196 Units/L (15-37) H 02/17/23 04:40 ALT 392 Units/L (12-78) H 02/17/23 04:40 Alkaline Phosphatase 111 Units/L (46-116) 02/17/23 04:40 Creatine Kinase 48 Units/L (26-192) 02/16/23 07:38 Troponin I High Sens < 4 ng/L (4.0-60.0) L 02/16/23 07:38 Total Protein 5.4 g/dL (6.4-8.2) L 02/17/23 04:40 Albumin 2.2 g/dL (3.4-5.0) L 02/17/23 04:40 Globulin 3.2 g/dL (2.5-4.5) 02/17/23 04:40 Albumin/Globulin Ratio 0.7 Ratio (1.1-2.1) L 02/17/23 04:40 Amylase 53 Units/L (25-115) 02/16/23 07:38 Lipase 41 Units/L (16-77) 02/16/23 07:38 Specimen Type Clean catch urine 02/16/23 08:25 Urine Color Yellow (YELLOW) 02/16/23 08:25 Urine Appearance Clear (CLEAR) 02/16/23 08:25 Urine pH 6.0 (5.0 - 8.0) 02/16/23 08:25 Ur Specific [place] 1.015 (1.000-1.030) 02/16/23 08:25 Urine Protein 1+ (NEGATIVE) 02/16/23 08:25 Urine Glucose (UA) Negative (NEGATIVE) 02/16/23 08:25 Urine Ketones Negative (NEGATIVE) 02/16/23 08:25 Urine Blood 1+ (NEGATIVE) 02/16/23 08:25 Urine Nitrite Negative (NEGATIVE) 02/16/23 08:25 Urine Bilirubin Negative (NEGATIVE) 02/16/23 08:25 Urine Urobilinogen Normal (NORMAL) 02/16/23 08:25 Ur Leukocyte Esterase 1+ (NEGATIVE) 02/16/23 08:25 Urine RBC 0-2 /HPF (0-3) 02/16/23 08:25 Urine WBC 3-5 /HPF (0-5) 02/16/23 08:25 Ur Squamous Epith Cells Few /HPF (NEGATIVE) 02/16/23 08:25 Amorphous Sediment 1+ /HPF (NEGATIVE) 02/16/23 08:25 Urine Bacteria 1+ /HPF (NEGATIVE) 02/16/23 08:25 Urine Mucus Rare /HPF (NEGATIVE) 02/16/23 08:25 Ur Culture Indicated? Yes/culture set up 02/16/23 08:25 SARS-CoV-2 (PCR) Negative (NEGATIVE) 02/16/23 08:02 Influenza Type A (PCR) Negative (NEGATIVE) 02/16/23 08:02 Influenza Type B (PCR) Negative (NEGATIVE) 02/16/23 08:02 RSV (PCR) Negative (NEGATIVE) 02/16/23 08:02 S. pyogenes (TEM-PCR) Not detected (NOT DETECT) 02/16/23 08:02 Assessment and Plan 1: Subsided partial small bowel obstruction To advance diet to full liquid. Repeat abdominal x-ray in the morning, if stay normal then patient could be discharged home and will follow her in 2 weeks to arrange for future colonoscopy. Problem Patient Problems: Patient Problems (Updated 02/16/23 @ 10:09 by Tc Roper) Partial small bowel obstruction (Acute) K56.600
[2023-02-18 04:49] VITALS: BP 118/59; PULSE 79; TEMP 98.3; O2SAT 95
[2023-02-18] MEDS: D5 1/2 NS 1,000 ML 1,000 ML IV SCH ×2 (05:33)
[2023-02-18 06:40] LABS: BASOPHILS % (AUTO) 0.4 % (0.2-1.0); EOSINOPHILS # (AUTO) 0.1 x10^3/uL (0.0-0.2); EOSINOPHILS % (AUTO) 1.5 % (0.9-2.9); HEMATOCRIT 40.3 % (36.0-47.0); HEMOGLOBIN 13.7 g/dL (12.0-16.0); LYMPHOCYTES # (AUTO) 1.4 X10^3/uL (1.3-2.9); LYMPHOCYTES % (AUTO) 23.6 % (21.0-51.0); MEAN CORPUSCULAR HEMOGLOBIN 30.1 pg (27.0-34.0); MEAN CORPUSCULAR VOLUME 88.7 fL (80.0-100.0); MEAN PLATELET VOLUME 7.2 fL (7.4-11.0); MONOCYTES # (AUTO) 0.5 x10^3/uL (0.3-0.8); MONOCYTES % (AUTO) 9.1 % (0.0-13.0); NEUTROPHILS # (AUTO) 3.9 x10^3/uL (2.2-4.8); NEUTROPHILS % (AUTO) 65.4 % (42.0-75.0); PLATELET COUNT 290 X10^3/uL (150.0-450.0); RED BLOOD COUNT 4.55 X10^6/uL (3.5-5.4); RED CELL DISTRIBUTION WIDTH 12.9 % (11.6-16.5)
[2023-02-18 07:02] LABS: ALANINE AMINOTRANSFERASE 275 Units/L (12-78); ALBUMIN 2.5 g/dL (3.4-5.0); ALKALINE PHOSPHATASE 102 Units/L (46-116); ASPARTATE AMINO TRANSFERASE 60 Units/L (15-37); BLOOD UREA NITROGEN 4 mg/dL (7-18); CALCIUM 8.1 mg/dL (8.5-10.1); CARBON DIOXIDE 29.2 mmol/L (21-32); CHLORIDE 105 mmol/L (98-107); COR CA(FOR HYPOALB) 9.3 mg/dL (8.5-10.1); GLUCOSE 99 mg/dL (65-99); MAGNESIUM 1.6 mg/dL (2.0-2.9); POTASSIUM 3.3 mmol/L (3.5-5.1); SODIUM 139 mmol/L (136-145); eGFR NON BLACK RACES > 60 (>60)
--- NOTE | 2023-02-18 09:29 | PCM.DCPLAN ---
DISCHARGE SUMMARY Admission Date Date of Admission: 02/16/23 Discharge Date Discharge Date: 02/18/23 Admission Diagnoses (1) Partial small bowel obstruction: Status: Acute (2) Hypokalemia: Status: Acute (3) Hypomagnesemia: Status: Acute (4) Elevated LFTs: Status: Acute Discharge Diagnoses Discharge Diagnosis: 1. Partial small bowel obstruction resolved 2. Hypokalemia improved 3. Hypomagnesemia improved 4. Elevated LFTs trending downward Discharge Medications Discharge Medications: Home Medication List alprazolam 0.5 mg tablet 0.5 mg PO BID PRN 02/16/23 [History] flavoxate 100 mg tablet 100 mg PO Q8H PRN bladder muscle dysfunction 02/16/23 [History] pantoprazole 40 mg tablet,delayed release 40 mg PO QDAY 02/16/23 [History] tirzepatide 2.5 mg/0.5 mL subcutaneous pen injector (Mounjaro) 2.5 mg subcut WEEKLY 02/16/23 [History] Prescriptions: Hospital Course Vital Signs: Vital Signs Temperature 98.3 F Pulse Rate [Left Brachial] 79 Respiratory Rate 18 Blood Pressure [Left Arm] 118/59 O2 Sat by Pulse Oximetry 95 Latest Lab Results: Laboratory Last Values WBC 6.0 X10^3/uL (3.6-10.0) 02/18/23 06:08 RBC 4.55 X10^6/uL (3.5-5.4) 02/18/23 06:08 Hgb 13.7 g/dL (12.0-16.0) 02/18/23 06:08 Hct 40.3 % (36.0-47.0) 02/18/23 06:08 MCV 88.7 fL (80.0-100.0) 02/18/23 06:08 MCH 30.1 pg (27.0-34.0) 02/18/23 06:08 MCHC 34.0 g/dL (33.0-35.0) 02/18/23 06:08 RDW 12.9 % (11.6-16.5) 02/18/23 06:08 Plt Count 290 X10^3/uL (150.0-450.0) 02/18/23 06:08 Plt Count Comment Adequate (ADEQUATE) 02/16/23 07:38 MPV 7.2 fL (7.4-11.0) L 02/18/23 06:08 Neut % (Auto) 65.4 % (42.0-75.0) 02/18/23 06:08 Lymph % (Auto) 23.6 % (21.0-51.0) 02/18/23 06:08 Rains % (Auto) 9.1 % (0.0-13.0) 02/18/23 06:08 Eos % (Auto) 1.5 % (0.9-2.9) 02/18/23 06:08 Baso % (Auto) 0.4 % (0.2-1.0) 02/18/23 06:08 Neut # (Auto) 3.9 x10^3/uL (2.2-4.8) 02/18/23 06:08 Lymph # (Auto) 1.4 X10^3/uL (1.3-2.9) 02/18/23 06:08 Rains # (Auto) 0.5 x10^3/uL (0.3-0.8) 02/18/23 06:08 Eos # (Auto) 0.1 x10^3/uL (0.0-0.2) 02/18/23 06:08 Baso # (Auto) 0.0 X10^3/uL (0.0-0.1) 02/18/23 06:08 Absolute Nucleated RBC 0.1 /100WBC 02/18/23 06:08 Total Counted 100 02/16/23 07:38 Neutrophils % (Manual) 91 % (39-76) H 02/16/23 07:38 Band Neutrophils % 3 % (0-10) 02/16/23 07:38 Lymphocytes % (Manual) 4 % (13-43) L 02/16/23 07:38 Monocytes % (Manual) 1 % (4-9) L 02/16/23 07:38 Eosinophils % (Manual) 1 % (0-6) 02/16/23 07:38 Plt Morphology Comment Normal (NORMAL) 02/16/23 07:38 RBC Morphology Normal (NORMAL) 02/16/23 07:38 Sodium 139 mmol/L (136-145) 02/18/23 06:08 Corrected Sodium TNP 02/18/23 06:08 Potassium 3.3 mmol/L (3.5-5.1) L 02/18/23 06:08 Chloride 105 mmol/L (98-107) 02/18/23 06:08 Carbon Dioxide 29.2 mmol/L (21-32) 02/18/23 06:08 BUN 4 mg/dL (7-18) L 02/18/23 06:08 Creatinine 0.60 mg/dL (0.55-1.02) 02/18/23 06:08 Est GFR (MDRD) Af Amer > 60 (>60) 02/18/23 06:08 Est GFR (MDRD) Non-Af > 60 (>60) 02/18/23 06:08 Glucose 99 mg/dL (65-99) 02/18/23 06:08 Calcium 8.1 mg/dL (8.5-10.1) L 02/18/23 06:08 Corrected Calcium 9.3 mg/dL (8.5-10.1) 02/18/23 06:08 Magnesium 1.6 mg/dL (2.0-2.9) L 02/18/23 06:08 Total Bilirubin 0.30 mg/dL (0.2-1.0) 02/18/23 06:08 AST 60 Units/L (15-37) H 02/18/23 06:08 ALT 275 Units/L (12-78) H 02/18/23 06:08 Alkaline Phosphatase 102 Units/L (46-116) 02/18/23 06:08 Creatine Kinase 48 Units/L (26-192) 02/16/23 07:38 Troponin I High Sens < 4 ng/L (4.0-60.0) L 02/16/23 07:38 Total Protein 6.0 g/dL (6.4-8.2) L 02/18/23 06:08 Albumin 2.5 g/dL (3.4-5.0) L 02/18/23 06:08 Globulin 3.5 g/dL (2.5-4.5) 02/18/23 06:08 Albumin/Globulin Ratio 0.7 Ratio (1.1-2.1) L 02/18/23 06:08 Amylase 53 Units/L (25-115) 02/16/23 07:38 Lipase 41 Units/L (16-77) 02/16/23 07:38 Specimen Type Clean catch urine 02/16/23 08:25 Urine Color Yellow (YELLOW) 02/16/23 08:25 Urine Appearance Clear (CLEAR) 02/16/23 08:25 Urine pH 6.0 (5.0 - 8.0) 02/16/23 08:25 Ur Specific [place] 1.015 (1.000-1.030) 02/16/23 08:25 Urine Protein 1+ (NEGATIVE) 02/16/23 08:25 Urine Glucose (UA) Negative (NEGATIVE) 02/16/23 08:25 Urine Ketones Negative (NEGATIVE) 02/16/23 08:25 Urine Blood 1+ (NEGATIVE) 02/16/23 08:25 Urine Nitrite Negative (NEGATIVE) 02/16/23 08:25 Urine Bilirubin Negative (NEGATIVE) 02/16/23 08:25 Urine Urobilinogen Normal (NORMAL) 02/16/23 08:25 Ur Leukocyte Esterase 1+ (NEGATIVE) 02/16/23 08:25 Urine RBC 0-2 /HPF (0-3) 02/16/23 08:25 Urine WBC 3-5 /HPF (0-5) 02/16/23 08:25 Ur Squamous Epith Cells Few /HPF (NEGATIVE) 02/16/23 08:25 Amorphous Sediment 1+ /HPF (NEGATIVE) 02/16/23 08:25 Urine Bacteria 1+ /HPF (NEGATIVE) 02/16/23 08:25 Urine Mucus Rare /HPF (NEGATIVE) 02/16/23 08:25 Ur Culture Indicated? Yes/culture set up 02/16/23 08:25 SARS-CoV-2 (PCR) Negative (NEGATIVE) 02/16/23 08:02 Influenza Type A (PCR) Negative (NEGATIVE) 02/16/23 08:02 Influenza Type B (PCR) Negative (NEGATIVE) 02/16/23 08:02 RSV (PCR) Negative (NEGATIVE) 02/16/23 08:02 S. pyogenes (TEM-PCR) Not detected (NOT DETECT) 02/16/23 08:02 Hospital Course: This is a 52-year-old white female who presented to [facility] emergency department with complaints of nausea, chills, diaphoresis, leg cramps and chest pain last night. Patient reports her symptoms started about 2330 and have persisted ever since. She did take some Zofran that she had a prescription for and she was not able to keep it down and she vomited out shortly afterwards. She reports that she is weak and having chest pain that started in the morning that is nonradiating. She is having epigastric pain and lower mid chest pain. She is status postcholecystectomy in the past and has had no other surgeries. Currently denies any fever, dysuria and diarrhea. Currently denies any fever, dysuria and diarrhea. Following day the patient is LFTs became elevated however by the following day they started trending back down. Not sure what caused this since they are trending down we will keep an eye on them to make sure that they normalize. Her magnesium and potassium levels have been down we have been replacing via the potassium/magnesium replacement protocol. Today there is still slightly low but we will give her some additional magnesium and potassium this morning prior to discharge. She is having bowel movements now reports that she is feeling better and is having a lot less abdominal pain. Her partial small bowel obstruction have resolved and we will go ahead and discharge her home today and have her follow-up with her primary care physician in [place], [place]. No new prescriptions at this time.
--- NOTE | 2023-02-18 09:54 | RAD ---
EXAM:KUBHISTORY:SBOCOMPARISON: February 17, 2023FINDINGS:Unremarkable amount and distribution of small bowel and colon gas without evidence for localized ileus or significant obstruction. No definite mass, fluid collection, or organ enlargement or calcification noted.IMPRESSION:There is no evidence for significant bowel obstruction. See above.THIS IS AN ELECTRONICALLY VERIFIED FINAL [id number]/18/2023 9:51 AM - Electronically signed by Noe Morris MD
== END 2023-02-18 11:15 | disposition home or self-care (01) ==
LOC: ER 07:09 → MED/SURG 07:09
PROVIDERS: ADMIT Family Medicine; ATTEND Family Medicine
DX: E83.42 Hypomagnesemia; R10.13 Epigastric pain; R74.01 Elevation of levels of liver transaminase levels; E87.6 Hypokalemia; R53.1 Weakness; K21.9 Gastro-esophageal reflux disease without esophagitis; R07.89 Other chest pain; K56.690 Other partial intestinal obstruction; Z20.822 Contact with and (suspected) exposure to COVID-19